=== PATIENT | male | born 1945 | race Caucasian/White ===

== ENCOUNTER 2018-12-12 08:16 | Outpatient (CLI) | payer MEDICARE ==
--- NOTE | 2018-12-12 10:23 | ULT ---
GALLBLADDER ULTRASOUND: History: Right upper quadrant pain. Comparison: None. Technique: Utilizing a multihertz transducer, sonographic imaging of the right upper quadrant was per formed in longitudinal and transverse plane. FINDINGS: Suboptimal evaluation of the pancreas. Heterogeneous echotexture of the liver may be due to hepatic steatosis or hepatocellular disease. Sub sequent evaluation for hepatic masses and intrahepatic biliary dilatation is limited. There is gallbladder wall thickening and pericholecystic fluid. Gallbladder is distended measuring 10 .2 cm. Within the gallbladder there are echogenic foci compatible with gallstones. Sludge is also not ed. There is a positive Hilton's sign. Gallbladder wall thickening is 0.8 cm. There is right renal cortical thinning. No hydronephrosis. Right kidney measures 11.1 cm in maximum d imension. Main portal vein is patent. Appropriate direction of flow. Common bile duct is 0.5 cm. IMPRESSION: Sonographic evidence of cholecystitis. POS: [facility]
== END 2018-12-12 08:17 | disposition home or self-care (01) ==
LOC: ULT 08:16
PROVIDERS: ATTEND Internal Medicine Gastroenterology
DX: R10.11 Right upper quadrant pain (principal); R07.9 Chest pain, unspecified; K81.9 Cholecystitis, unspecified
CPT/HCPCS: 76705

== ENCOUNTER 2018-12-12 09:48 | Inpatient (IN) | payer MEDICARE ==
[2018-12-12] MEDS ORDERED: Morphine 4 MG/ML VIAL ONE (10:14)
[2018-12-12] MEDS ORDERED: Ondansetron PF 4 MG/2 ML Vial ONE (10:14)
[2018-12-12 10:39] LABS: Mean Corpuscular HGB CONC 32.4 g/dL (32.0-36.0); Mean Corpuscular Hemoglobin 31.8 pg (27.0-31.0); Platelet Count 356 thou/uL (130-400); RBC Distribution Width 11.6 % (11.5-14.5); Red Blood Cell (RBC) Count 4.72 mill/uL (4.70-6.10); White Blood Cell (WBC) Count 19.3 thou/uL (4.8-10.8)
[2018-12-12 10:40] LABS: INR-International Normal Ratio 1.1; PTT 29.9 SEC (22.9-36.1); Prothrombin Time 14.5 SEC (12.0-14.7)
[2018-12-12 10:46] LABS: ALT (SGPT) 156 U/L (8-55); AST (SGOT) 115 U/L (5-34); Albumin 3.9 g/dL (3.4-4.8); Alkaline Phosphatase 557 U/L (40-150); Anion Gap 20 mmol/L (10-20); BUN (Urea Nitrogen) 53 mg/dL (8.4-25.7); Bilirubin, Total 1.5 mg/dL (0.2-1.2); CK (CPK) 29 U/L (30-200); Calc. Creatinine Clearance 0 mL/min (70-130); Calcium 9.9 mg/dL (7.8-10.44); Carbon Dioxide 21 mmol/L (23-31); Chloride 99 mmol/L (98-107); Estimated GFR-MDRD 20; Globulin 4.2 g/dL (2.4-3.5); Glucose 123 mg/dL (83-110); Lipase 37 U/L (8-78); Potassium 4.2 mmol/L (3.5-5.1); Protein, Total 8.1 g/dL (5.8-8.1); Sodium 136 mmol/L (136-145)
[2018-12-12 11:00] LABS: Band 6 % (5-11); Lymphocytes 5 % (21-51); MDiff Complete? YES; Monocytes 6 % (0-10); Neutrophil 83 % (42-75); RBC Morphology Normal
[2018-12-12] MEDS ORDERED: MEROPENEM 1 GM/50 ML 1 GM in Premix Bag 1 BAG IVPB SCH (11:15)
--- NOTE | 2018-12-12 11:33 | RAD ---
ONE VIEW CHEST: Comparison: 09-09-19 History: Preoperative exam. FINDINGS: Portable upright chest radiograph demonstrates a normal cardiac silhouette. Pulmonary vessels and hil um are normal. Costophrenic angles are clear. No consolidation or mass. No pneumothorax or osseous ab normality. IMPRESSION: No acute cardiopulmonary process. POS: [facility]
[2018-12-12 14:11] VITALS: BMI 23.9
[2018-12-12] MEDS ORDERED: Acetaminophen 650 MG Suppository PR PRN (14:21)
[2018-12-12] MEDS ORDERED: hydrALAZINE 20 MG/ML VIAL SLOW IVP PRN (14:21)
[2018-12-12] MEDS ORDERED: Acetaminophen 500 MG TAB PO PRN (14:21)
[2018-12-12] MEDS ORDERED: Ondansetron ODT 4 MG TAB PO PRN (14:21)
[2018-12-12] MEDS: Piperacillin/Tazobactam 2.25 GM in Sodium Chloride 0.9% 100 ML IVPB SCH ×2 (14:42→21:03)
[2018-12-12] MEDS: Sodium Chloride 0.9% 1,000 ML IV SCH (14:42)
[2018-12-12] MEDS: Famotidine/PF 20 mg/2ml Vial SLOW IVP SCH (20:17)
--- NOTE | 2018-12-12 21:21 | HP ---
PRIMARY CARE PROVIDER: [facility]. CHIEF COMPLAINT: Abdominal pain. HISTORY OF PRESENT ILLNESS: This is a 73-year-old male who presents to [facility] after being directed by his primary visual display manager, Dr. Bran, for increasing abdominal pain and a gallbladder ultrasound confirming the presence of cholecystitis. The patient states he was recently admitted to [facility] in [place], [place], undergoing extensive cardiac evaluation after presenting with chest pain to [facility]. The patient underwent cardiac workup with essentially negative findings and was released to home. The patient states he began developing increasing abdominal discomfort, worsening with deep inspiration with associated shaking chills, decreased appetite, and general malaise. The patient denied any recent trauma, injury, or recent surgical intervention, but does states he has extensive surgical history, previously undergoing partial colectomy due to severe diverticulitis. The patient localizes most of the pain to the right upper quadrant region, worse with deep inspiration as stated previously. The patient does state he continues to have regular bowel movements, usually very loose after his partial colectomy. The patient initially rated the pain 8/10, currently 3/10. In the emergency room, the patient underwent general evaluation including gallbladder ultrasound showing evidence of cholecystitis with gallbladder wall thickening and pericholecystic fluid. Common bile duct was not dilated and the patient received meropenem 1 g x1 dose in addition to intravenous normal saline, morphine sulfate, and Zofran. PAST MEDICAL HISTORY: 1. Diverticulitis/diverticulosis. 2. Myocardial infarction x3. 3. Hyperlipidemia. 4. Incisional abdominal hernia. 5. History of varicose veins. PAST SURGICAL HISTORY: 1. Status post skin cancer removal from the back. 2. Prostate resection. 3. Status post partial colectomy. 4. Status post repair of incisional hernia. CURRENT MEDICATIONS: 1. Aspirin enteric-coated 81 mg p.o. daily. 2. Flexeril 10 mg p.o. daily. 3. Dexilant 30 mg p.o. daily. 4. Cartia XT 120 mg p.o. daily. 5. Nitroglycerin 0.4 mg sublingually q.5 minutes p.r.n. chest pain. 6. Crestor 10 mg p.o. daily. 7. Valsartan 40 mg p.o. daily. 8. Ventolin HFA 2 puffs inhaled b.i.d. p.r.n. 9. Effient 10 mg p.o. daily. ALLERGIES: CODEINE AND HYDROCODONE. FAMILY HISTORY: Mother with coronary artery disease. SOCIAL HISTORY: The patient is , accompanied by his in the hospital. Former tobacco use, none currently. Alcohol use, 2 to 3 drinks daily. No illicit drug use. REVIEW OF SYSTEMS: CONSTITUTIONAL: Negative for weight loss or gain, ability to conduct usual activities. SKIN: Negative for rash, itching. EYES: Negative for double vision, pain. ENT/MOUTH: Negative for nose bleeding, neck stiffness, pain, tenderness. CARDIOVASCULAR: Negative for palpitations, dyspnea on exertion, orthopnea. RESPIRATORY: Negative for shortness of breath, wheezing, cough, hemoptysis, fever or night sweats. GASTROINTESTINAL: Negative for poor appetite, abdominal pain, heartburn, nausea, vomiting, constipation, or diarrhea. GENITOURINARY: Negative for urgency, frequency, dysuria, nocturia. MUSCULOSKELETAL: Negative for pain, swelling. NEUROLOGIC/PSYCHIATRIC: Negative for anxiety, depression. ALLERGY/IMMUNOLOGIC: Negative for skin rash, bleeding tendency. Otherwise, negative except as stated per HPI. PHYSICAL EXAMINATION: VITAL SIGNS: On admission, blood pressure 112/74, pulse 78, respiratory rate 18, temperature 98.3 degrees Fahrenheit, and O2 saturation 94% on room air. GENERAL APPEARANCE: This is a 73-year-old male, alert and oriented x3, pleasant, conversant, in no acute distress. HEENT: Pupils are equal, round, reactive to light and accommodation. Extraocular muscles are intact. No scleral icterus. No conjunctival injection. Nares patent. OP is clear. Teeth in fair repair. NECK: Supple. No cervical adenopathy. No thyromegaly. No carotid bruits. No JVD appreciated. Cervical spine with full active and passive range of motion. No meningeal signs noted. CHEST: Lungs are clear to auscultation bilaterally. CARDIOVASCULAR: S1 and S2 without noted murmur, rub, or gallop. Heart sounds distant. ABDOMEN: Rounded with tenderness to palpation in the right upper quadrant. No rebound or guarding noted. Bowel sounds are positive in all 4 quadrants. Surgical scars noted in the midline consistent with prior surgical history. EXTREMITIES: Warm and dry with fair turgor. No clubbing, cyanosis, or asymmetric edema appreciated. Pulses palpable distally at the dorsalis pedis, posterior tibial, and popliteal arteries bilaterally. Capillary refill less than 2 seconds. NEUROLOGIC: Cranial nerves 2 through 12 are grossly intact. No focal or lateralizing signs appreciated. PERTINENT LABORATORY DATA AND X-RAY FINDINGS: Sodium 136, potassium 4.2, chloride 99, CO2 of 21, BUN 53, creatinine 3.14, estimated GFR of 20, glucose 123, calcium 9.9, total bilirubin 1.5, AST 115, ALT 156, alkaline phosphatase 557, total CK of 29. BNP 12.3. Lipase 37. CBC showed a white blood cell count of 19.3, hemoglobin 15, hematocrit 46, and platelet count 356, with 83% neutrophils. PT 14.5, INR 1.1, and PTT 30. Abdominal ultrasound dated 12/12/2018 showed gallbladder wall thickening with pericholecystic fluid with gallbladder measuring 10.2 cm. Echogenic foci compatible with gallstones and sludge noted. Common bile duct 0.5 cm. Portable chest x-ray dated 12/12/2018 showed no acute cardiopulmonary process. EKG dated 12/12/2018 by my interpretation shows a sinus mechanism with heart rates in the 80s. Normal R-wave progression noted in the precordial leads. Normal axis. No acute ST-T wave changes appreciated. ASSESSMENT AND PLAN: 1. Acute cholecystitis. The patient will be admitted to the medical floor. Continue Zosyn 2.25 g IV q.8 hours. Intravenous normal saline at 100 mL/h. Pain control with morphine sulfate 4 mg IV q.4 hours p.r.n. Consult General Surgery Service for surgical intervention and cholecystectomy. 2. Acute kidney injury. Suspect multifactorial including hypovolemia in conjunction with iatrogenic influence with losartan. Continue intravenous normal saline at 100 mL/h. Avoid nephrotoxic agents and limit contrast exposure. Repeat creatinine in the a.m. 3. Transaminitis, secondary to acute cholecystitis. We will continue to monitor LFT trend. Limit hepatotoxic agents. Hold Crestor. 4. Coronary artery disease, chronic and stable. Enteric-coated aspirin 81 mg daily. Recent cardiac workup negative. 5. Prophylaxis. SCDs while in bed. Pepcid 20 mg IV q.24 hours. 6. Code status is full. Surrogate medical decision maker is the patient's spouse. Job ID: [id number]
--- NOTE | 2018-12-13 00:01 | CON ---
DATE OF CONSULTATION: 12/12/2018 CONSULTING PHYSICIAN: Dr. Venkat De Los Santos. REASON FOR CONSULTATION: Acute kidney injury. REASON FOR ADMISSION: Abdominal pain. HISTORY OF PRESENT ILLNESS: This is a 73-year-old male with a history of coronary artery disease, hyperlipidemia, came to the hospital with the above complaints and he was found to have elevated creatinine. The patient was found to have a good p.o. intake. No nausea, vomiting, or diarrhea reported. No fever or chills. PAST MEDICAL HISTORY: Positive for coronary artery disease, hyperlipidemia. PAST SURGICAL HISTORY: Cardiac stents, tonsillectomy. HOME MEDICATIONS: Reviewed. ALLERGIES: NO KNOWN DRUG ALLERGIES. SOCIAL HISTORY: No smoking, alcohol, or illicit drug abuse. FAMILY HISTORY: No history of any kidney disease. REVIEW OF SYSTEMS: CONSTITUTIONAL: Negative for weight loss or gain, ability to conduct usual activities. SKIN: Negative for rash, itching. EYES: Negative for double vision, pain. ENT/MOUTH: Negative for nose bleeding, neck stiffness, pain, tenderness. CARDIOVASCULAR: Negative for palpitations, dyspnea on exertion, orthopnea. RESPIRATORY: Negative for shortness of breath, wheezing, cough, hemoptysis, fever or night sweats. GASTROINTESTINAL: Negative for poor appetite, abdominal pain, heartburn, nausea, vomiting, constipation, or diarrhea. GENITOURINARY: Negative for urgency, frequency, dysuria, nocturia. MUSCULOSKELETAL: Negative for pain, swelling. NEUROLOGIC/PSYCHIATRIC: Negative for anxiety, depression. ALLERGY/IMMUNOLOGIC: Negative for skin rash, bleeding tendency. PHYSICAL EXAMINATION: GENERAL: This is a well-built male, in no apparent distress. VITAL SIGNS: Temperature 98.3, pulse 78, respiratory rate 18, blood pressure 112/74. HEENT: Atraumatic and normocephalic. Oral mucosa is moist. NECK: Supple. CARDIOVASCULAR: S1 and S2 heard. Rate and rhythm are regular. RESPIRATORY: Clear. DERMATOLOGIC: No skin rash. NEUROLOGIC: Alert and awake. PSYCHIATRIC: Normal mood and affect LABORATORY DATA: Hemoglobin is 15, potassium is 4.2, BUN is 53, creatinine is 3.1. ASSESSMENT AND PLAN: 1. Acute kidney injury, most likely from volume depletion and sepsis. 2. Edema, controlled. 3. Hypertension. 4. Leukocytosis. 5. Avoid nephrotoxins. We will continue IV fluids as tolerated. Continue antibiotics. Thank you for the consult. Job ID: [id number]
--- NOTE | 2018-12-13 01:10 | CON ---
DATE OF CONSULTATION: 12/12/2018 CHIEF COMPLAINT: Abdominal pain. HISTORY OF PRESENT ILLNESS: Mr. Herndon is a 73-year-old man who presented to GI Clinic last night with abdominal pain. He had just been admitted to [facility] in [place], [place] the week before with sudden onset chest pain. He was admitted and ruled out for MS. He started developing right upper quadrant pain along with that as well. However, further workup was not performed at that time. He was thought to have primarily reflux for his symptoms. He presented to GI Clinic yesterday afternoon for evaluation of reflux. However, at that time he had complained more of right upper quadrant pain that had gradually worsened a couple of days before. He had epigastric pain along with that as well. He states that the pain was unrelated to eating, but was a severe pressure type, constant pain. The pain was worsened by lying on his right side. He had a nuclear stress test that was negative. He had no improvement with nitroglycerin. He reports that this pain was different from the pain he had previously with acid reflux. He was set up for ultrasound this morning which showed changes of acute cholecystitis. Liver tests were ordered and found to be elevated as well. The patient was sent onto the emergency room for further care where he was given IV fluids and antibiotics and also found to have acute renal failure. PAST MEDICAL HISTORY: Meyer esophagus, colon polyp requiring colon resection, diverticulosis, gastric ulcer, irritable bowel syndrome, gastroesophageal reflux disease, COPD, coronary artery disease. PAST SURGICAL HISTORY: Colon resection, prostate surgery, cardiac catheterization with stent placement. MEDICATIONS: As an outpatient include; 1. Aspirin. 2. Cartia. 3. Cyclobenzaprine. 4. Dexilant 30 mg daily. 5. Prasugrel. 6. Rosuvastatin. 7. Valsartan. 8. Ventolin. 9. Psyllium husk. ALLERGIES: CODEINE. SOCIAL HISTORY: He drinks 6-8 drinks per week. He is a former smoker. No drugs. FAMILY HISTORY: Negative for GI malignancy. REVIEW OF SYSTEMS: Negative x10 systems reviewed except as stated in the history of present illness. PHYSICAL EXAMINATION: VITAL SIGNS: Temperature 98.3, pulse 78, blood pressure 112/74. GENERAL: He is in no acute distress. Alert and oriented x3. HEENT: Eyes have no scleral icterus. Oropharynx is clear without lesions. No cervical or supraclavicular lymphadenopathy. LUNGS: Clear to auscultation bilaterally. HEART: Regular rate and rhythm without murmur. ABDOMEN: Soft, tender in the right upper quadrant without guarding. Bowel sounds are present. EXTREMITIES: No lower extremity edema. Cranial nerves are grossly intact. LABORATORY DATA: White blood cell count 19.3, hemoglobin 15.0, platelets 356. INR 1.1. Creatinine 3.14 with a BUN of 53, bilirubin 1.5, AST 115, ALT 156, alkaline phosphatase 557, albumin 3.9, lipase 37. IMPRESSION: 1. Acute cholecystitis. Ultrasound of the gallbladder today shows gallbladder wall thickening and pericholecystic fluid with gallbladder distention and gallstones present. Common bile duct measured 0.5 cm. 2. Elevated liver tests. This could be reactive to the acute cholecystitis. However, the elevated alkaline phosphatase does raise the possibility of choledocholithiasis. Given the normal-caliber bile duct plan is to recheck the liver tests in the morning. If the liver tests are not significantly increasing, then we will follow through with cholecystectomy with intraoperative cholangiogram. If the liver tests are rising, then ERCP might be indicated 1st. 3. Chronic obstructive pulmonary disease. 4. Coronary artery disease. 5. Acute renal failure, likely prerenal azotemia. RECOMMENDATIONS: 1. Recheck liver tests tomorrow. We will determine whether cholecystectomy with intraoperative cholangiogram versus ERCP should be performed 1st. Given the current information, the tentative plan is to perform the cholecystectomy 1st. 2. IV fluids and antibiotics. Job ID: [id number]
[2018-12-13] MEDS: Sodium Chloride 0.9% 1,000 ML IV SCH ×3 (04:57→20:16)
[2018-12-13] MEDS: Piperacillin/Tazobactam 2.25 GM in Sodium Chloride 0.9% 100 ML IVPB SCH ×3 (05:07→20:18)
[2018-12-13 08:55] LABS: ALT (SGPT) 108 U/L (8-55); AST (SGOT) 76 U/L (5-34); Alkaline Phosphatase 469 U/L (40-150); Anion Gap 13 mmol/L (10-20); BUN (Urea Nitrogen) 52 mg/dL (8.4-25.7); Bilirubin, Total 0.8 mg/dL (0.2-1.2); Calc. Creatinine Clearance 31 mL/min (70-130); Calcium 8.4 mg/dL (7.8-10.44); Carbon Dioxide 22 mmol/L (23-31); Chloride 108 mmol/L (98-107); Estimated GFR-MDRD 27; Globulin 3.3 g/dL (2.4-3.5); Glucose 101 mg/dL (83-110); Potassium 4.2 mmol/L (3.5-5.1); Protein, Total 6.3 g/dL (5.8-8.1); Sodium 139 mmol/L (136-145)
[2018-12-13] MEDS ORDERED: Nitroglycerin 0.4 MG TAB (25 Tab Bottle) SL PRN (08:55)
[2018-12-13] MEDS ORDERED: Albuterol Sulfate 2.5 mg/3 ml Neb NEB PRN (08:56)
[2018-12-13] MEDS ORDERED: Valsartan 80 MG TAB PO SCH ×2 (09:00)
[2018-12-13] MEDS: Rosuvastatin 10 MG TAB PO SCH (09:48)
--- NOTE | 2018-12-13 10:05 | PRG ---
DATE OF SERVICE: 12/13/2018 SUBJECTIVE: The patient still has some mild right upper quadrant abdominal pain, but eager to get through a surgical procedure. He has been voiding well. Urine is clear. He has no other new complaints. PHYSICAL EXAMINATION: VITAL SIGNS: Temperature 97.6, pulse 74, respirations 20, O2 saturation 92% on room air, BP 129/78. GENERAL APPEARANCE: Age-appropriate male, in no distress. He is awake, alert, oriented, pleasant, and cooperative. HEART: Regular rate and rhythm without murmurs, gallops, or rubs. LUNGS: Clear bilaterally. ABDOMEN: Soft, nondistended. Positive bowel sounds. Tenderness to palpation with some mild voluntary guarding in the right upper quadrant. EXTREMITIES: No edema. LABORATORY DATA: Sodium 139, potassium 4.8, chloride 108, CO2 is 22, BUN 52, creatinine 2.41, total bilirubin 0.8, AST 76, ALT 108, alkaline phosphatase 469. IMPRESSION AND PLAN: 1. Acute cholecystitis. The patient has slightly improved liver enzymes this morning, Gastroenterology and Surgery following. Per Gastrointestinal recommendations, may simply need cholecystectomy with intraoperative cholangiogram, possibility of an endoscopic retrograde cholangiopancreatography prior to surgery. However, his liver enzymes can appear to be slightly better. 2. Transaminitis secondary to acute cholecystitis. 3. Chronic obstructive pulmonary disease, chronic, stable. The patient does not use inhaler and has not had one in a good while. We will provide him one p.r.n. 4. History of coronary artery disease, stable and well compensated. Holding his aspirin and Effient until he is postoperative today. 5. Acute kidney failure. The patient's creatinine is improved with hydration. I suspect this was previous prerenal azotemia secondary to dehydration illness. Nephrology following. Continue with fluids. Continue to monitor labs. Job ID: [id number]
[2018-12-13 11:24] LABS: Band 4 % (5-11); Eosinophils 3 % (0-10); Hemoglobin 12.5 g/dL (14.0-18.0); Hypochromia SLIGHT = 6-15 cells (100X) (0-5/hpf); Lymphocytes 7 % (21-51); MDiff Complete? YES; Macrocytosis SLIGHT = 6-15 cells (100X) (0-5/hpf); Mean Corpuscular HGB CONC 31.9 g/dL (32.0-36.0); Mean Corpuscular Hemoglobin 32.1 pg (27.0-31.0); Mean Platelet Volume 7.3 fL (7.4-10.4); Monocytes 6 % (0-10); Neutrophil 80 % (42-75); Platelet Count 237 thou/uL (130-400); Platelet Morphology Comment Appears Adequate; RBC Distribution Width 11.7 % (11.5-14.5); Red Blood Cell (RBC) Count 3.89 mill/uL (4.70-6.10); White Blood Cell (WBC) Count 9.1 thou/uL (4.8-10.8)
--- NOTE | 2018-12-13 12:58 | PRG ---
DATE OF SERVICE: 12/13/2018 SUBJECTIVE: Patient was seen and examined at bedside and overnight events noted. Patient denies any shortness of breath or chest pain or palpitation. No history of nausea or vomiting or diarrhea or fever or chills or cramps. OBJECTIVE: GENERAL: This is a well-built male, in no apparent distress. VITAL SIGNS: Temperature 97.0, pulse 74, respiratory rate 20, blood pressure 129/78. HEENT: Atraumatic, normocephalic. Oral mucosa is moist NECK: Supple. CARDIOVASCULAR: S1, S2 heard. Rate and rhythm regular. RESPIRATORY: Clear to auscultation. GASTROINTESTINAL: Abdomen is soft. MUSCULOSKELETAL: No tenderness. No edema. DERMATOLOGIC: No skin rash. NEUROLOGIC: Alert and awake and oriented X3. No focal neurologic deficits. Moving all the extremities. PSYCHIATRIC: Mood and affect normal. LABORATORY DATA: Potassium is 4.2, BUN is 52, creatinine is 2.4. ASSESSMENT AND PLAN: 1. Acute kidney injury, getting better. Avoid nephrotoxins. Plan discussed with Dr. Pelayo and plan to have surgery in next 24 to 48 hours. 2. Edema, controlled. 3. Hypertension. 4. Leukocytosis. Overall stable. Renal function getting better. Avoid nephrotoxins and renally dose all medications. Continue antibiotics and IV fluids as tolerated. We will hold Valsartan for now. Job ID: [id number]
--- NOTE | 2018-12-13 17:06 | CON ---
DATE OF CONSULTATION: 12/13/2018 CHIEF COMPLAINT: Cholecystitis. HISTORY OF PRESENT ILLNESS: This is a 73-year-old male, who presents with a history of previous right colectomy followed by incisional hernia repair by me. He had component separation hernia repair. He now presents with upper abdominal pain, bloating. Right upper quadrant ultrasound shows acute cholecystitis. Common bile duct is normal on the ultrasound. His liver tests were elevated on admission as was his creatinine, which was elevated to 3. He has been hemodynamically stable since admission. He is urinating regularly. His pain is slightly improved, and his creatinine dropped from 3 to 2.4 this morning, and I discussed with Dr. Anderson, who recommends further observation before a general anesthetic unless it needs to be an urgent procedure. PAST MEDICAL HISTORY: As above. PAST SURGICAL HISTORY: As above. MEDICATIONS: See list. ALLERGIES: CODEINE. SOCIAL HISTORY: No smoking, alcohol, or other drugs. REVIEW OF SYSTEMS: A 10-system review of systems is otherwise negative, unless described above. PHYSICAL EXAMINATION: VITAL SIGNS: Blood pressure is 158/78, pulse 73, respirations 20. He is afebrile. HEENT: Sclerae anicteric. Oropharynx clear. NECK: No lymphadenopathy. CHEST: Clear. HEART: Regular rate and rhythm. ABDOMEN: Soft, tender in the right upper quadrant with localized guarding without rebound. EXTREMITIES: No ischemia or edema to extremities. LABORATORY DATA: White blood cell count is 9, hemoglobin is 12, platelet count is 237. Sodium 139, potassium 4.2, creatinine down from 3.14 to 2.41, bilirubin is now normal. ASSESSMENT: 1. Acute cholecystitis. 2. Acute tubular necrosis, likely secondary to dehydration. PLAN: Plan further observation and perform laparoscopic cholecystectomy when it is deemed safe by Nephrology. We will continue to follow with you. I suspect surgery in the next 48 to 72 hours. Job ID: [id number]
[2018-12-13] MEDS: Famotidine/PF 20 mg/2ml Vial SLOW IVP SCH (20:15)
[2018-12-14] MEDS: Piperacillin/Tazobactam 2.25 GM in Sodium Chloride 0.9% 100 ML IVPB SCH ×3 (05:48→20:08)
[2018-12-14] MEDS: Sodium Chloride 0.9% 1,000 ML IV SCH ×3 (05:52→17:05)
[2018-12-14 06:55] LABS: #Eosinphils 0.2 thou/uL (0.0-0.7); #Lymphocytes 0.8 thou/uL (1.20-3.40); #Monocytes 0.8 thou/uL (0.11-0.59); #Neutrophils 6.6 thou/uL (1.40-6.50); %Basophils 0.5 % (0.0-1.0); %Eosinophils 2.3 % (0.0-10.0); %Lymphocytes 9.8 % (21.0-51.0); %Monocytes 9.7 % (0.0-10.0); %Neutrophils 77.7 % (42.0-75.0); Hemoglobin 12.3 g/dL (14.0-18.0); Mean Corpuscular HGB CONC 32.7 g/dL (32.0-36.0); Mean Corpuscular Hemoglobin 32.7 pg (27.0-31.0); Mean Corpuscular Volume 99.8 fL (78.0-98.0); Mean Platelet Volume 7.3 fL (7.4-10.4); Platelet Count 254 thou/uL (130-400); RBC Distribution Width 11.5 % (11.5-14.5); Red Blood Cell (RBC) Count 3.75 mill/uL (4.70-6.10); White Blood Cell (WBC) Count 8.4 thou/uL (4.8-10.8)
[2018-12-14 07:15] LABS: Anion Gap 12 mmol/L (10-20); BUN (Urea Nitrogen) 35 mg/dL (8.4-25.7); Calc. Creatinine Clearance 50 mL/min (70-130); Calcium 8.4 mg/dL (7.8-10.44); Carbon Dioxide 23 mmol/L (23-31); Chloride 108 mmol/L (98-107); Estimated GFR-MDRD 46; Glucose 93 mg/dL (83-110); Sodium 139 mmol/L (136-145)
[2018-12-14] MEDS: Rosuvastatin 10 MG TAB PO SCH (08:38)
--- NOTE | 2018-12-14 14:08 | PRG ---
DATE OF SERVICE: 12/14/2018 SUBJECTIVE: Mr. Herndon is feeling better today, has no real complaints. His kidney function is improved. OBJECTIVE: VITAL SIGNS: He is afebrile. Vital signs are stable. ASSESSMENT: Acute cholecystitis. PLAN: Laparoscopic cholecystectomy tomorrow morning. Risks, benefits, and alternatives were discussed and he gives consent. We will do this tomorrow. Job ID: [id number]
--- NOTE | 2018-12-14 16:07 | PDOC.PN ---
- Subjective Encounter Start Date: 12/14/18 (f/u htn) Encounter Start Time: 16:05 Subjective: Pt reports feeling better. 4 loose stools today. denies n/v -: some abd pain but improved compared to admission. -: denies any new stents - Objective Resuscitation Status - Order Detail: 12/12/18 12:17 Resuscitation Status Routine Resuscitation Status: FULL: Full Resuscitation Vital Signs & Weight: Vital Signs (12 hours) Temp Pulse Resp BP BP Pulse Ox 12/14/18 08:39 77 142/62 H 12/14/18 07:30 98.3 F 77 12 142/62 H 90 L Weight Admit Weight 176 lb 5.917 oz Weight 176 lb 5.917 oz I&O: 12/13/18 12/14/18 12/15/18 06:59 06:59 06:59 Intake Total 1919 780 Balance 1919 780 Result Diagrams: 12/14/18 06:33 12/14/18 06:33 Phys Exam - Physical Examination Constitutional: NAD Respiratory: no wheezing, no rales, no rhonchi, clear to auscultation bilateral Cardiovascular: RRR, no significant murmur Gastrointestinal: soft, non-tender, no distention, positive bowel sounds Musculoskeletal: no edema Neurological: non-focal, moves all 4 limbs Psychiatric: normal affect Dx/Plan (1) Acute cholecystitis Code(s): K81.0 - ACUTE CHOLECYSTITIS Status: Acute (2) DAYANARA (acute kidney injury) Code(s): N17.9 - ACUTE KIDNEY FAILURE, UNSPECIFIED Status: Acute (3) Transaminitis Code(s): R74.0 - NONSPEC ELEV OF LEVELS OF TRANSAMNS & LACTIC ACID DEHYDRGNSE Status: Acute (4) Diarrhea Code(s): R19.7 - DIARRHEA, UNSPECIFIED Status: Acute (5) Coronary artery disease Code(s): I25.10 - ATHSCL HEART DISEASE OF [place] CORONARY ARTERY W/O ANG PCTRS Status: Chronic (6) Dyslipidemia Code(s): E78.5 - HYPERLIPIDEMIA, UNSPECIFIED Status: Chronic (7) Anemia Code(s): D64.9 - ANEMIA, UNSPECIFIED Status: Acute Qualifiers: Anemia type: unspecified type Qualified Code(s): D64.9 - Anemia, unspecified - Plan * Appreciate Nephro and Gen Surgery consults * anticipated surgery tomorrow * Creatinine improved. Pt frequently voiding - will lower NS IVF slightly * * check C Diff given diarrhea. If negative imodium prn * on dual anti-platelet therapy, no recent stent. Resume when cleared by Gen Surgery * * anemia - mild, monitor * * dvt prophy - scd's * gi prophy -not indicated * code status full. * * reviewed plan of care wiht patient, no questions or further needs at end of eval * pt remains at high risk in current condition
--- NOTE | 2018-12-14 18:34 | PRG ---
DATE OF SERVICE: 12/14/2018 SUBJECTIVE: Patient was seen and examined at bedside and overnight events noted. Patient denies any shortness of breath or chest pain or palpitation. No history of nausea or vomiting or diarrhea or fever or chills or cramps. OBJECTIVE: GENERAL: This is a well-built male, in no apparent distress. VITAL SIGNS: Temperature 98.3, pulse 77, respiratory rate 18, blood pressure 142/62. HEENT: Atraumatic, normocephalic. Oral mucosa is moist NECK: Supple. CARDIOVASCULAR: S1, S2 heard. Rate and rhythm regular. RESPIRATORY: Clear to auscultation. GASTROINTESTINAL: Abdomen is soft. MUSCULOSKELETAL: No tenderness. No edema. DERMATOLOGIC: No skin rash. NEUROLOGIC: Alert and awake and oriented X3. No focal neurologic deficits. Moving all the extremities. PSYCHIATRIC: Mood and affect normal. LABORATORY DATA: Potassium is 4.0, BUN is 35, creatinine is 1.5. ASSESSMENT AND PLAN: 1. Acute kidney injury, getting better. 2. Edema, controlled. 3. Hypertension. 4. Leukocytosis. 5. Renal function is getting better nicely. Okay to have surgery tomorrow. Avoid nephrotoxins. We will monitor. Job ID: [id number]
[2018-12-14] MEDS: Famotidine/PF 20 mg/2ml Vial SLOW IVP SCH (20:06)
[2018-12-14] MEDS ORDERED: Loperamide HCl 2 MG CAP PO PRN (20:24)
[2018-12-15] MEDS: Piperacillin/Tazobactam 2.25 GM in Sodium Chloride 0.9% 100 ML IVPB SCH ×3 (05:59→20:17)
[2018-12-15] MEDS: Sodium Chloride 0.9% 1,000 ML IV SCH ×2 (06:00→18:29)
[2018-12-15 06:47] LABS: #Eosinphils 0.3 thou/uL (0.0-0.7); #Monocytes 0.8 thou/uL (0.11-0.59); %Basophils 0.1 % (0.0-1.0); %Eosinophils 4.1 % (0.0-10.0); %Lymphocytes 12.6 % (21.0-51.0); %Monocytes 9.8 % (0.0-10.0); %Neutrophils 73.4 % (42.0-75.0); Hemoglobin 12.4 g/dL (14.0-18.0); Mean Corpuscular HGB CONC 33.1 g/dL (32.0-36.0); Mean Corpuscular Hemoglobin 32.7 pg (27.0-31.0); Mean Corpuscular Volume 98.8 fL (78.0-98.0); Mean Platelet Volume 7.1 fL (7.4-10.4); Platelet Count 284 thou/uL (130-400); RBC Distribution Width 11.4 % (11.5-14.5); Red Blood Cell (RBC) Count 3.79 mill/uL (4.70-6.10); White Blood Cell (WBC) Count 8.2 thou/uL (4.8-10.8)
[2018-12-15 07:07] LABS: Anion Gap 12 mmol/L (10-20); BUN (Urea Nitrogen) 24 mg/dL (8.4-25.7); Calc. Creatinine Clearance 70 mL/min (70-130); Calcium 8.5 mg/dL (7.8-10.44); Carbon Dioxide 24 mmol/L (23-31); Chloride 109 mmol/L (98-107); Estimated GFR-MDRD 67; Glucose 103 mg/dL (83-110); Potassium 3.6 mmol/L (3.5-5.1); Sodium 141 mmol/L (136-145)
[2018-12-15] MEDS: Rosuvastatin 10 MG TAB PO SCH (10:00)
[2018-12-15] MEDS ORDERED: Lidocaine 1% PF 5 ML VIAL ONE (14:40)
[2018-12-15] MEDS ORDERED: Glycopyrrolate 0.2 MG/ML 5 ML SYRINGE ONE (14:40)
[2018-12-15] MEDS ORDERED: PROPOFOL 200 MG/20 ML VIAL ONE (14:40)
[2018-12-15] MEDS ORDERED: Rocuronium Bromide 10 MG/ML (10ML VIAL) ONE (14:40)
[2018-12-15] MEDS ORDERED: Ondansetron PF 4 MG/2 ML Vial ONE (14:40)
--- NOTE | 2018-12-15 14:45 | PRG ---
DATE OF SERVICE: 12/15/2018 SUBJECTIVE: Patient was seen and examined at bedside and overnight events noted. Patient denies any shortness of breath or chest pain or palpitation. No history of nausea or vomiting or diarrhea or fever or chills or cramps. OBJECTIVE: GENERAL: This is a well-built male, in no apparent distress. VITAL SIGNS: Temperature 98.2. Heart rate 73. Respiratory rate 18. Blood pressure 158/80. HEENT: Atraumatic, normocephalic. Oral mucosa is moist NECK: Supple. CARDIOVASCULAR: S1, S2 heard. Rate and rhythm regular. RESPIRATORY: Clear to auscultation. GASTROINTESTINAL: Abdomen is soft. MUSCULOSKELETAL: No tenderness. No edema. DERMATOLOGIC: No skin rash. NEUROLOGIC: Alert and awake and oriented X3. No focal neurologic deficits. Moving all the extremities. PSYCHIATRIC: Mood and affect normal. LABORATORY DATA: Potassium 3.6, creatinine is 1.08. ASSESSMENT AND PLAN: 1. Acute kidney injury, stable. 2. Edema, controlled. 3. Hypertension. 4. Leukocytosis. 5. Avoid nephrotoxins. Renal function is stable. We will follow. Job ID: [id number]
[2018-12-15] MEDS ORDERED: Fentanyl 100 MCG/2 ML VIAL ONE ×3 (14:53→17:37)
[2018-12-15] MEDS ORDERED: Bupivacaine HCl 0.5%/Epinephrine 1:200,000/PF 30 ml Vial ONE (14:59)
[2018-12-15] MEDS ORDERED: Bupivacaine/Epinephrine 0.25% 30 ML VIAL ONE (14:59)
[2018-12-15] MEDS ORDERED: Iothalamate Meglumine 60% 50 ML VIAL FS ONE (14:59)
--- NOTE | 2018-12-15 15:54 | EKG ---
Test Reason : Blood Pressure : / mmHG Vent. Rate : 083 BPM Atrial Rate : 083 BPM P-R Int : 142 ms QRS Dur : 090 ms QT Int : 360 ms P-R-T Axes : 034 050 039 degrees QTc Int : 423 ms Normal sinus rhythm Normal ECG Confirmed by SONIDO KU, GRACIELA (12), editor & co founder SIMON AGUILAR ([id number]) on 12/15/2018 3:53:54 PM Referred By: Confirmed By:GRACIELA HEAD MD
--- NOTE | 2018-12-15 18:09 | RAD ---
INTRAOPERATIVE CHOLANGIOGRAM 12/15/18 HISTORY: Cholecystectomy. FINDINGS: Three images from an intraoperative cholangiogram were provided. Contrast media is seen within the cy stic duct, incompletely imaged intrahepatic ducts and within the CBD. There is a questionable filling defect within the distal common bile duct on image 3-of-4. The distal CBD is never fully opacified. This could represent a stone within the distal aspect of the common bile duct, could be secondary to incomplete filling, or could represent an air bubble or blood clot. Correlation with real time imagin g is essential. IMPRESSION: Questionable tiny filling defect in distal CBD with incomplete opacification of CBD on provided imagi ng as above. POS: [facility]
--- NOTE | 2018-12-15 18:25 | PRG ---
DATE OF SERVICE: 12/15/2018 SUBJECTIVE: I saw Mr. Herndon prior to surgery. He was in no acute distress and he had tenderness in the right upper quadrant related to his cholecystitis. He underwent cholecystectomy today and intraoperative cholangiogram did show a filling defect in the bile duct. OBJECTIVE: ABDOMEN: Soft and tender in the right upper quadrant. LABORATORY DATA: White blood cell count was 8.2 today, hemoglobin 12.4, platelets 284. Creatinine has improved to 1.08. Bilirubin two days ago was down to 0.8, AST 76, ALT 108, alkaline phosphatase 469. IMPRESSION: 1. Acute cholecystitis, status post laparoscopic cholecystectomy today. 2. Choledocholithiasis. PLAN: We will perform endoscopic retrograde cholangiopancreatography in the morning. Job ID: [id number]
[2018-12-15] MEDS: Morphine 4 MG/ML VIAL SLOW IVP PRN ×2 (18:37→23:14)
--- NOTE | 2018-12-15 19:24 | PDOC.PN ---
- Subjective Encounter Start Date: 12/15/18 (f/u DAYANARA) Encounter Start Time: 18:20 Subjective: Pt s/p surgery = c/o pain. Denies any n/v -: No overnight events - Objective Resuscitation Status - Order Detail: 12/12/18 12:17 Resuscitation Status Routine Resuscitation Status: FULL: Full Resuscitation Vital Signs & Weight: Vital Signs (12 hours) Temp Pulse Resp BP Pulse Ox 12/15/18 18:25 97.4 F L 63 18 159/75 H 93 L 12/15/18 08:15 65 12/15/18 08:00 90 L 12/15/18 07:54 98.2 F 58 L 18 158/80 H 90 L Weight Admit Weight 176 lb 5.917 oz Weight 176 lb 5.917 oz I&O: 12/14/18 12/15/18 12/16/18 06:59 06:59 06:59 Intake Total 780 1511 Balance 780 1511 Result Diagrams: 12/15/18 06:28 12/15/18 06:28 Phys Exam - Physical Examination Constitutional: NAD Respiratory: no wheezing, no rales, no rhonchi Cardiovascular: RRR, no significant murmur Gastrointestinal: soft Musculoskeletal: no edema, pulses present Neurological: non-focal, moves all 4 limbs Psychiatric: normal affect Dx/Plan (1) Acute cholecystitis Code(s): K81.0 - ACUTE CHOLECYSTITIS Status: Acute (2) DAYANARA (acute kidney injury) Code(s): N17.9 - ACUTE KIDNEY FAILURE, UNSPECIFIED Status: Resolved (3) Transaminitis Code(s): R74.0 - NONSPEC ELEV OF LEVELS OF TRANSAMNS & LACTIC ACID DEHYDRGNSE Status: Acute (4) Diarrhea Code(s): R19.7 - DIARRHEA, UNSPECIFIED Status: Acute (5) Coronary artery disease Code(s): I25.10 - ATHSCL HEART DISEASE OF [place] CORONARY ARTERY W/O ANG PCTRS Status: Chronic (6) Dyslipidemia Code(s): E78.5 - HYPERLIPIDEMIA, UNSPECIFIED Status: Chronic (7) Anemia Code(s): D64.9 - ANEMIA, UNSPECIFIED Status: Acute Qualifiers: Anemia type: unspecified type Qualified Code(s): D64.9 - Anemia, unspecified - Plan * * Appreciate Nephro and Gen Surgery consults * s/p cholecystectomy today with plan for ERCP tomorrow * DAYANARA, continue IVF overnight * * diarrhea secondary to antibiotics, negative C Diff - imodium prn * on dual anti-platelet therapy, no recent stent. Resume when cleared by Gen Surgery * * anemia - mild, monitor * * dvt prophy - scd's * gi prophy -not indicated * code status full. * * reviewed plan of care with patient/family, no questions or further needs at end of eval * pt remains at high risk in current condition.
[2018-12-15] MEDS ORDERED: traMADol HCl 50 MG TAB PO PRN ×2 (19:45)
[2018-12-15] MEDS ORDERED: Fentanyl 100 MCG/2 ML VIAL SLOW IVP PRN ×2 (19:45)
[2018-12-15] MEDS: Famotidine/PF 20 mg/2ml Vial SLOW IVP SCH (20:17)
[2018-12-15] MEDS: Ondansetron PF 4 MG/2 ML Vial IVP PRN (23:24)
[2018-12-16 05:10] LABS: #Lymphocytes 0.4 thou/uL (1.20-3.40); #Monocytes 0.4 thou/uL (0.11-0.59); #Neutrophils 8.7 thou/uL (1.40-6.50); %Basophils 0.2 % (0.0-1.0); %Eosinophils 0.2 % (0.0-10.0); %Lymphocytes 4.4 % (21.0-51.0); %Monocytes 4.5 % (0.0-10.0); %Neutrophils 90.7 % (42.0-75.0); Hemoglobin 12.5 g/dL (14.0-18.0); Mean Corpuscular HGB CONC 32.9 g/dL (32.0-36.0); Mean Corpuscular Hemoglobin 32.6 pg (27.0-31.0); Mean Platelet Volume 7.3 fL (7.4-10.4); Platelet Count 329 thou/uL (130-400); RBC Distribution Width 11.5 % (11.5-14.5); Red Blood Cell (RBC) Count 3.84 mill/uL (4.70-6.10); White Blood Cell (WBC) Count 9.5 thou/uL (4.8-10.8)
[2018-12-16] MEDS: Piperacillin/Tazobactam 2.25 GM in Sodium Chloride 0.9% 100 ML IVPB SCH ×3 (05:10→20:24)
[2018-12-16] MEDS: Sodium Chloride 0.9% 1,000 ML IV SCH (05:11)
[2018-12-16 05:36] LABS: ALT (SGPT) 133 U/L (8-55); AST (SGOT) 111 U/L (5-34); Alkaline Phosphatase 690 U/L (40-150); Anion Gap 12 mmol/L (10-20); BUN (Urea Nitrogen) 23 mg/dL (8.4-25.7); Bilirubin, Total 0.7 mg/dL (0.2-1.2); Calc. Creatinine Clearance 73 mL/min (70-130); Calcium 8.2 mg/dL (7.8-10.44); Carbon Dioxide 24 mmol/L (23-31); Chloride 107 mmol/L (98-107); Estimated GFR-MDRD 71; Globulin 2.9 g/dL (2.4-3.5); Glucose 177 mg/dL (83-110); Potassium 4.6 mmol/L (3.5-5.1); Protein, Total 5.9 g/dL (5.8-8.1); Sodium 138 mmol/L (136-145)
[2018-12-16] MEDS: Rosuvastatin 10 MG TAB PO SCH (07:46)
[2018-12-16] MEDS ORDERED: Lidocaine 2% Jelly 5 ML TUBE ONE (08:55)
[2018-12-16] MEDS ORDERED: Fentanyl 100 MCG/2 ML VIAL ONE ×2 (08:55→11:38)
--- NOTE | 2018-12-16 09:37 | PDOC.GSPN ---
Surgery Progress Note: Subj - Subjective Narrative: complain of pain mostly in the left abdomen, getting ERCP today Surgery Progress Note: Obj - Vital signs Vital signs: Vital Signs - Most Recent Temp Pulse Resp BP Pulse Ox 97.6 F 76 18 155/82 H 91 L 12/16/18 07:49 12/16/18 07:49 12/16/18 07:49 12/16/18 07:49 12/16/18 08:00 - Physical Exam General: no distress Respiratory: clear to auscultation Abdomen: soft, appropriately tender Surgery Progress Note: Results - Labs Result Diagrams: 12/16/18 04:42 12/16/18 04:42 Lab results: Laboratory Results - last 24 hr 12/16/18 12/16/18 04:42 04:42 WBC 9.5 RBC 3.84 L Hgb 12.5 L Hct 38.0 L MCV 99.0 H MCH 32.6 H MCHC 32.9 RDW 11.5 Plt Count 329 MPV 7.3 L Neutrophils % 90.7 H Lymphocytes % 4.4 L Monocytes % 4.5 Eosinophils % 0.2 Basophils % 0.2 Neutrophils # 8.7 H Lymphocytes # 0.4 L Monocytes # 0.4 Eosinophils # 0.0 Basophils # 0.0 Sodium 138 Potassium 4.6 Chloride 107 Carbon Dioxide 24 Anion Gap 12 BUN 23 Creatinine 1.03 Estimated GFR (MDRD) 71 Glucose 177 H Calcium 8.2 Total Bilirubin 0.7 AST 111 H ALT 133 H Alkaline Phosphatase 690 H Serum Total Protein 5.9 Albumin 3.0 L Globulin 2.9 Albumin/Globulin Ratio 1.0 L Surgery Progress Note: A/P - Problem (1) Acute cholecystitis Current Visit: Yes Code(s): K81.0 - ACUTE CHOLECYSTITIS Status: Acute Assessment and Plan: Plan ERCP today for CBD stone. -ANDREAS drain in place , non-bilious, monitor for bile drainage. -pain control
[2018-12-16] MEDS ORDERED: Iothalamate Meglumine 60% 50 ML VIAL FS ONE (09:55)
[2018-12-16] MEDS ORDERED: Indomethacin 50 MG SUPP ONE (09:55)
[2018-12-16] MEDS ORDERED: Ondansetron HCl/PF 4 MG/2 ML Vial IVP PRN (11:19)
[2018-12-16] MEDS ORDERED: Promethazine HCl 25 MG/ML VIAL SLOW IVP PRN (11:19)
[2018-12-16] MEDS ORDERED: Promethazine HCl 25 MG/ML VIAL IM PRN (11:19)
--- NOTE | 2018-12-16 14:29 | RAD ---
ERCP: DATE: 12/16/2018. PROVIDED CLINICAL HISTORY: ERCP. FINDINGS/IMPRESSION: Opacification of the extrahepatic and intrahepatic biliary system demonstrate the previously describe d area of luminal narrowing treated with balloon distention. Subsequently, the biliary system appear s unremarkable. POS: [facility]
[2018-12-16] MEDS ORDERED: Dexamethasone 20 MG/5 ML VIAL ONE (14:51)
[2018-12-16] MEDS ORDERED: Lidocaine 1% PF 5 ML VIAL ONE (14:51)
[2018-12-16] MEDS ORDERED: Ondansetron PF 4 MG/2 ML Vial ONE (14:51)
[2018-12-16] MEDS ORDERED: PHENYLEPHRINE-NS 100 MCG/ML 10 ML SYRINGE ONE (14:51)
[2018-12-16] MEDS ORDERED: Glycopyrrolate 0.2 MG/ML 5 ML SYRINGE ONE (14:51)
[2018-12-16] MEDS ORDERED: Rocuronium Bromide 10 MG/ML (10ML VIAL) ONE (14:51)
[2018-12-16] MEDS ORDERED: PROPOFOL 200 MG/20 ML VIAL ONE (14:51)
--- NOTE | 2018-12-16 16:16 | PDOC.PN ---
- Subjective Encounter Start Date: 12/16/18 (f/u acute cholecystitis) Encounter Start Time: 16:13 Subjective: Pt today feels sore, is s/p ERCP. Denies any nausea or further diarrhea -: denies any cp/sob - Objective Resuscitation Status - Order Detail: 12/12/18 12:17 Resuscitation Status Routine Resuscitation Status: FULL: Full Resuscitation Vital Signs & Weight: Vital Signs (12 hours) Temp Pulse Resp BP BP Pulse Ox 12/16/18 16:10 97.4 F L 66 16 143/75 H 95 12/16/18 12:00 97.4 F L 63 18 152/76 H 91 L 12/16/18 08:00 91 L 12/16/18 07:49 97.6 F 76 18 155/82 H 91 L 12/16/18 07:46 74 12/16/18 05:00 97.9 F 74 18 148/79 H 92 L Weight Admit Weight 176 lb 5.917 oz Weight 176 lb 5.917 oz I&O: 12/15/18 12/16/18 12/17/18 06:59 06:59 06:59 Intake Total 1511 1450 Output Total 110 Balance 1511 1340 Result Diagrams: 12/16/18 04:42 12/16/18 04:42 Phys Exam - Physical Examination Constitutional: NAD Respiratory: no wheezing, no rales, no rhonchi, clear to auscultation bilateral Cardiovascular: RRR, no significant murmur Gastrointestinal: soft hypoactive bowel sounds Musculoskeletal: no edema Neurological: non-focal, moves all 4 limbs Psychiatric: normal affect Dx/Plan (1) Acute cholecystitis Code(s): K81.0 - ACUTE CHOLECYSTITIS Status: Acute (2) DAYANARA (acute kidney injury) Code(s): N17.9 - ACUTE KIDNEY FAILURE, UNSPECIFIED Status: Resolved (3) Transaminitis Code(s): R74.0 - NONSPEC ELEV OF LEVELS OF TRANSAMNS & LACTIC ACID DEHYDRGNSE Status: Acute (4) Diarrhea Code(s): R19.7 - DIARRHEA, UNSPECIFIED Status: Acute (5) Coronary artery disease Code(s): I25.10 - ATHSCL HEART DISEASE OF [place] CORONARY ARTERY W/O ANG PCTRS Status: Chronic (6) Dyslipidemia Code(s): E78.5 - HYPERLIPIDEMIA, UNSPECIFIED Status: Chronic (7) Anemia Code(s): D64.9 - ANEMIA, UNSPECIFIED Status: Acute Qualifiers: Anemia type: unspecified type Qualified Code(s): D64.9 - Anemia, unspecified - Plan * * Appreciate Nephro and Gen Surgery consults * s/p cholecystectomy 12/[address] Pelayo * s/p ERCP 12/[address] Bran * DAYANARA resolved and creatinine normal today. Will plan to d/c IVF when taking adequate PO * * diarrhea secondary to antibiotics, negative C Diff - imodium prn * on dual anti-platelet therapy, no recent stent. Resume when cleared by Gen Surgery * * anemia - mild, secondary to illness * * BP's mildly elevated - tx pain * * Oxygen requiring - start incentive spirometer while awake * * dvt prophy - scd's * gi prophy -not indicated * code status full. * * Discharge planning - based on when cleared by Gen Surgery - has a drain in place, on IV antibiotics currently, will need to determine when to restart aspirin/effient. * * Reviewed plan of care with patient/, no questions or further needs at end of eval.
[2018-12-16] MEDS: Ondansetron PF 4 MG/2 ML Vial IVP PRN (16:20)
--- NOTE | 2018-12-16 17:23 | OP ---
DATE OF PROCEDURE: 12/16/2018 PROCEDURES PERFORMED: Endoscopic retrograde cholangiopancreatography with sphincterotomy. PREOPERATIVE DIAGNOSIS: Choledocholithiasis by intraoperative cholangiogram. DESCRIPTION OF PROCEDURE: Informed consent was obtained from the patient. He was sedated with general anesthesia and placed in the prone position. The duodenoscope was advanced easily to the second portion of the duodenum where the ampulla was identified and was small and had good flow of bile. The common bile duct was selectively cannulated without difficulty. Cholangiogram was performed, which showed a 7 mm common bile duct with unremarkable intra and extrahepatic ducts. There was not an obvious filling defect. A complete sphincterotomy was performed. The 9 to 12 mm balloon was used to sweep the bile duct and passed easily through the sphincterotomy. Occlusion cholangiogram confirmed the duct to be clear and there was rapid drainage of contrast from the duct following sphincterotomy and balloon sweep of the duct. IMPRESSION: 1. Cholangiogram showing 7 mm common bile duct with unremarkable intra and extrahepatic ducts. No obvious filling defect was present. 2. Complete sphincterotomy performed. The ampulla was small. 3. Balloon sweep of the bile duct and occlusion cholangiogram confirms the duct to be clear. RECOMMENDATIONS: Check liver tests in the morning. Job ID: [id number]
[2018-12-16] MEDS: Morphine 4 MG/ML VIAL SLOW IVP PRN (20:24)
[2018-12-16] MEDS: Famotidine/PF 20 mg/2ml Vial SLOW IVP SCH (20:25)
--- NOTE | 2018-12-16 20:25 | PRG ---
DATE OF SERVICE: 12/16/2018 SUBJECTIVE: The patient was seen and examined at bedside and overnight events noted. The patient denies any shortness of breath or chest pain or palpitation. No history of nausea or vomiting or diarrhea or fever or chills or cramps. OBJECTIVE: GENERAL: This is a well-built male, in no apparent distress. VITAL SIGNS: Temperature 97.4, pulse 62, respiratory rate 16, blood pressure 143/75. HEENT: Atraumatic, normocephalic. Oral mucosa is moist NECK: Supple. CARDIOVASCULAR: S1, S2 heard. Rate and rhythm regular. RESPIRATORY: Clear to auscultation. GASTROINTESTINAL: Abdomen is soft. MUSCULOSKELETAL: No tenderness. No edema. DERMATOLOGIC: No skin rash. NEUROLOGIC: Alert and awake and oriented X3. No focal neurologic deficits. Moving all the extremities. PSYCHIATRIC: Mood and affect normal. LABORATORY DATA: Potassium is 4.6, BUN is 23, creatinine is 1.03. ASSESSMENT AND PLAN: 1. Acute kidney injury, stable, back to normal. 2. Edema, controlled. 3. Hypertension. 4. Leukocytosis. 5. Acute cholecystitis. Follow with surgery and GI, status post surgery. 6. Current renal function is stable. I will sign off. Please call back with any questions. Job ID: [id number]
[2018-12-17] MEDS: Sodium Chloride 0.9% 1,000 ML IV SCH ×2 (03:54→10:20)
[2018-12-17] MEDS: Piperacillin/Tazobactam 2.25 GM in Sodium Chloride 0.9% 100 ML IVPB SCH (05:47)
[2018-12-17] MEDS: Morphine 4 MG/ML VIAL SLOW IVP PRN ×2 (05:51→10:28)
[2018-12-17 06:34] LABS: #Lymphocytes 0.7 thou/uL (1.20-3.40); #Monocytes 0.9 thou/uL (0.11-0.59); #Neutrophils 11.8 thou/uL (1.40-6.50); %Eosinophils 0.1 % (0.0-10.0); %Lymphocytes 5.2 % (21.0-51.0); %Monocytes 6.9 % (0.0-10.0); %Neutrophils 87.7 % (42.0-75.0); Hemoglobin 12.4 g/dL (14.0-18.0); Mean Corpuscular HGB CONC 32.3 g/dL (32.0-36.0); Mean Corpuscular Hemoglobin 32.5 pg (27.0-31.0); Mean Platelet Volume 7.5 fL (7.4-10.4); Platelet Count 361 thou/uL (130-400); RBC Distribution Width 11.4 % (11.5-14.5); Red Blood Cell (RBC) Count 3.82 mill/uL (4.70-6.10); White Blood Cell (WBC) Count 13.5 thou/uL (4.8-10.8)
[2018-12-17 06:53] LABS: Anion Gap 11 mmol/L (10-20); BUN (Urea Nitrogen) 25 mg/dL (8.4-25.7); Calc. Creatinine Clearance 92 mL/min (70-130); Calcium 8.1 mg/dL (7.8-10.44); Carbon Dioxide 27 mmol/L (23-31); Chloride 109 mmol/L (98-107); Estimated GFR-MDRD Greater than 90; Glucose 130 mg/dL (83-110); Potassium 4.5 mmol/L (3.5-5.1); Sodium 142 mmol/L (136-145)
[2018-12-17 06:55] LABS: ALT (SGPT) 87 U/L (8-55); AST (SGOT) 31 U/L (5-34); Albumin 2.9 g/dL (3.4-4.8); Alkaline Phosphatase 500 U/L (40-150); Bilirubin, Direct 0.3 mg/dL (0.1-0.3); Bilirubin, Total 0.6 mg/dL (0.2-1.2); Protein, Total 5.7 g/dL (5.8-8.1)
[2018-12-17] MEDS: Rosuvastatin 10 MG TAB PO SCH (07:41)
[2018-12-17 07:53] VITALS: BP 148/82; TEMP 97.6
--- NOTE | 2018-12-17 09:01 | PDOC.GSPN ---
Surgery Progress Note: Subj - Subjective Patient reports: no new complaints Surgery Progress Note: Obj - Vital signs Vital signs: Vital Signs - Most Recent Temp Pulse Resp BP Pulse Ox 97.6 F 64 16 148/82 H 92 L 12/17/18 07:52 12/17/18 07:52 12/17/18 07:52 12/17/18 07:52 12/17/18 08:00 - Physical Exam General: no distress Abdomen: soft, appropriately tender Wound: healing well Surgery Progress Note: Results - Labs Result Diagrams: 12/17/18 06:00 12/17/18 06:00 Lab results: Laboratory Results - last 24 hr 12/17/18 12/17/18 12/17/18 06:00 06:00 06:00 WBC 13.5 H RBC 3.82 L Hgb 12.4 L Hct 38.5 L MCV 101.0 H MCH 32.5 H MCHC 32.3 RDW 11.4 L Plt Count 361 MPV 7.5 Neutrophils % 87.7 H Lymphocytes % 5.2 L Monocytes % 6.9 Eosinophils % 0.1 Basophils % 0.0 Neutrophils # 11.8 H Lymphocytes # 0.7 L Monocytes # 0.9 H Eosinophils # 0.0 Basophils # 0.0 Sodium 142 Potassium 4.5 Chloride 109 H Carbon Dioxide 27 Anion Gap 11 BUN 25 Creatinine 0.82 Estimated GFR (MDRD) Greater than 90 Glucose 130 H Calcium 8.1 Total Bilirubin 0.6 Direct Bilirubin 0.3 AST 31 ALT 87 H Alkaline Phosphatase 500 H Serum Total Protein 5.7 L Albumin 2.9 L Surgery Progress Note: A/P - Problem (1) Acute cholecystitis Current Visit: Yes Code(s): K81.0 - ACUTE CHOLECYSTITIS Status: Acute - Plan Plan: DC today -I wrote for norco and zoan and sent to [facility] -f/u ak monday for drain removal
--- NOTE | 2018-12-17 12:17 | PDOC.PN ---
- Subjective Encounter Start Date: 12/17/18 Encounter Start Time: 11:30 Subjective: Patient doing well post op. Dressed and ready to go home. Cleared by -: Dr. Pelayo to go home and Rx already given for pain meds by Dr. Pelayo. - Objective Resuscitation Status - Order Detail: 12/12/18 12:17 Resuscitation Status Routine Resuscitation Status: FULL: Full Resuscitation MAR Reviewed: Yes Vital Signs & Weight: Vital Signs (12 hours) Temp Pulse Resp BP Pulse Ox 12/17/18 08:00 92 L 12/17/18 07:52 97.6 F 64 16 148/82 H 92 L 12/17/18 07:41 64 12/17/18 00:19 97.5 F L 64 18 132/75 92 L Weight Admit Weight 176 lb 5.917 oz Weight 176 lb 5.917 oz I&O: 12/16/18 12/17/18 12/18/18 06:59 06:59 06:59 Intake Total 1450 420 Output Total 110 55 15 Balance 1340 -55 405 Result Diagrams: 12/17/18 06:00 12/17/18 06:00 Phys Exam - Physical Examination Constitutional: NAD HEENT: moist MMs Respiratory: no wheezing, no rales, no rhonchi Cardiovascular: RRR, no significant murmur Gastrointestinal: soft, positive bowel sounds Neurological: non-focal, moves all 4 limbs Psychiatric: normal affect, A&O x 3 Dx/Plan (1) Acute cholecystitis Code(s): K81.0 - ACUTE CHOLECYSTITIS Status: Acute Comment: s/p cholecystectomy and ERCP (2) DAYANARA (acute kidney injury) Code(s): N17.9 - ACUTE KIDNEY FAILURE, UNSPECIFIED Status: Resolved (3) Transaminitis Code(s): R74.0 - NONSPEC ELEV OF LEVELS OF TRANSAMNS & LACTIC ACID DEHYDRGNSE Status: Acute (4) Coronary artery disease Code(s): I25.10 - ATHSCL HEART DISEASE OF [place] CORONARY ARTERY W/O ANG PCTRS Status: Chronic (5) Diarrhea Code(s): R19.7 - DIARRHEA, UNSPECIFIED Status: Acute Comment: neg c.diff, getting antidiarrheals (6) Dyslipidemia Code(s): E78.5 - HYPERLIPIDEMIA, UNSPECIFIED Status: Chronic (7) Anemia Code(s): D64.9 - ANEMIA, UNSPECIFIED Status: Acute Qualifiers: Anemia type: unspecified type Qualified Code(s): D64.9 - Anemia, unspecified - Plan cont current plan of care d/c home, f/u with Dr. Pelayo for drain removal * . - Discharge Day Encounter end time: 11:50
--- NOTE | 2018-12-18 03:39 | DIS ---
DATE OF ADMISSION: 12/12/2018 DATE OF DISCHARGE: 12/17/2018 PRIMARY CARE PHYSICIAN: [facility]. REASON FOR ADMISSION: Acute cholecystitis. DIAGNOSES AT DISCHARGE: 1. Acute cholecystitis status post cholecystectomy and ERCP with sphincterotomy. 2. Acute kidney injury, resolved. 3. Transaminitis secondary to #1. 4. Diarrhea secondary to antibiotics, noninfectious. 5. Coronary artery disease, chronic. 6. Dyslipidemia. 7. Anemia. PROCEDURES: 1. Laparoscopic cholecystectomy with intraoperative cholangiogram showing a questionable tiny filling defect in the distal common bile duct with incomplete opacification of the common bile duct. 2. ERCP x-ray showing opacification of the extrahepatic and intrahepatic biliary system, status post treatment of the luminal narrowing with balloon distension. 3. Endoscopic retrograde cholangiopancreatography with sphincterotomy. CONSULTATIONS: 1. General Surgery, Dr. Pelayo. 2. Gastroenterology, Dr. Bran. 3. Nephrology, Dr. Anderson. SUMMARY OF HOSPITAL COURSE: This is a 73-year-old white male who was sent to the ER from Dr. Bran's office for increasing abdominal pain and gallbladder ultrasound confirming cholecystitis. The patient did have a recent negative extensive cardiac workup at [facility] for chest pain. The patient was admitted to the hospital, General Surgery was consulted. He eventually had a cholecystectomy done. The intraoperative cholangiogram did show some filling defects as above, so he had an ERCP done by Dr. Bran with balloon sweep and sphincterotomy with repeat cholangiogram that was normal. The patient did well postoperatively. He did have some diarrhea with his antibiotics given for his acute cholecystitis. However, his C diff was negative and so he was treated with antidiarrheals with good result. He was doing well on the day of discharge and was discharged by Dr. Pelayo to follow up in his clinic to have his drain removed in the clinic. The patient did have an elevated creatinine initially on his arrival. With fluid resuscitation and treatment of his infection, the patient's kidney function returned to normal. DISCHARGE MANAGEMENT: Location: Discharged home. Followup: Follow up with Dr. Pelayo on December 21 for drain removal and with his primary care doctor in 7-10 days. Activity: As tolerated. Diet: Healthy heart diet. DISCHARGE MEDICATIONS: 1. [place] as per Dr. Pelayo's written prescription. 2. Continue aspirin 81 mg daily. 3. Flexeril 10 mg daily. 4. Dexilant 30 mg daily. 5. Diltiazem extended release 120 mg daily. 6. Nitroglycerin as needed. 7. Effient 10 mg daily. 8. Crestor 10 mg daily. 9. Valsartan 40 mg daily. 10. Ventolin inhaler as needed. Job ID: [id number]
--- NOTE | 2018-12-18 13:51 | OP ---
DATE OF PROCEDURE: 12/15/2018 PREOPERATIVE DIAGNOSES: Acute cholecystitis, elevated liver tests. POSTOPERATIVE DIAGNOSES: Acute cholecystitis, elevated liver tests, choledocholithiasis. PROCEDURE PERFORMED: Laparoscopic cholecystectomy with intraoperative cholangiogram. ANESTHESIA: General. ESTIMATED BLOOD LOSS: Minimal. COMPLICATIONS: None. SPECIMENS: Gallbladder. DESCRIPTION OF PROCEDURE: The patient was taken to the operating room and laid supine on the operating room table. After general anesthetic was obtained, the abdomen was prepped and draped in a sterile fashion. Left subcostal 5-mm Optiview trocar was placed and high-flow pneumoperitoneum was obtained. The patient had significant intraabdominal adhesions. Additional 5 mm port had to be placed in left lower quadrant for adhesiolysis that was done sharply without injury. Finally, a 12-mm port was able to be placed near the umbilicus and two right upper quadrant 5 mm ports. The gallbladder was retracted from the gallbladder fossa. The peritoneum was opened anteriorly and posteriorly. The critical view triangle was seen showing only the cystic duct and cystic artery branching medial to lateral. There were no other branching structures. There was significant gangrenous cholecystitis present. A clip was placed high on the cystic duct. A small ductotomy was made just proximal to that. A cholangiocatheter was brought in through a separate stab incision, placed in the cystic duct and a cholangiogram was performed, which shows the common bile duct obstruction. It was partial. There was some contrast flow into the duodenum, but an obvious filling defect. Cholangiocatheter was removed. Two clips were placed proximally on the cystic duct and one laterally was cut using laparoscopic scissors. The cystic artery was taken using two clips proximally, one clip distally and cut using laparoscopic scissors. Cautery was used to dissect the gallbladder out of gallbladder fossa. Gallbladder was placed in and Endo Catch bag and brought out through the umbilical port site. All port sites were infiltrated using local anesthetic. All ports were removed under camera visualization. Pneumoperitoneum was let down. PDS was used to close the fascial defect at the larger port site. All incisions were irrigated and closed using 4-0 Monocryl and Dermabond. The patient was sent to Recovery in stable condition. All instrument counts, needle counts, and lap counts were correct. Job ID: [id number]
--- NOTE | 2018-12-19 07:30 | PQF ---
SAP Dishwasher Preparer Crystal Reports Winform Viewer URIAH DURBIN CHARLES DO [id number] [id number] CLINICAL DOCUMENTATION CLARIFICATION FORM: POST DISCHARGE Addendum to original discharge summary date: ____ Late entry note date: __ DATE:12-19-18 ATTN: Dr. Venkat De Los Santos Please exercise your independent, professional judgment in responding to the clarification form. Clinical indicators are provided on the bottom of this form for your review Can you please specify whether ATN is ruled in or ruled out during this encounter? [ ] Ruled in diagnosis [ ] Continue to treat [ ] Resolved [ ] Ruled out diagnosis [ ] Cannot rule out diagnosis [x ] Acute Kidney Injury (DAYANARA) [ ] Other diagnosis please specify: [ ] Unable to determine For continuity of documentation, please document condition throughout progress notes and discharge summary. Thank You. CLINICAL INDICATORS: -H&P 12/[address] De Los Santos- Acute kidney injury suspect multifactorial including hypovolemia -H&P 12/[address] De Los Santos- Avoid nephrotoxic agents and limit contrast exposure -PN 12/[address] Santana- DAYANARA-The patient creatinine is improved with hydration -Consult 12/[address] Pelayo- Acute tubular necrosis, likely secondary to dehydration -Consult 12/[address] Anderson Acute Kidney Injury, most likely from volume depletion and sepsis. -DS pg1 12/[address] Sebastian- Acute kidney, resolved -Laboratory-BUN =53(12/12), 52 (12/13), 35(12/14) -Laboratory-Creatine =3.14 (12/12), 2.41 (12/12), 1.50 (12/12) RISK FACTORS: -Anemia- DS 12/17 pg1 -Diarrhea secondary to antibiotics- DS 12/17 pg1 -Dehydration-Consult 12/13 pg2 -Hypertension- PN 12/15 pg1 -intermediate of Aspirin 81 mg daily H&P TREATMENTS: -IV fluids- MAR -Nephrology consult- Dr. Anderson 12/12 (This form is maintained as a part of the permanent medical record) 2014 [employer]. All Rights Reserved Fany [email or web address] [not [email or web address]] [email or web address]
== END 2018-12-17 12:10 | disposition home or self-care (01) | DRG 418 ==
LOC: ERS 09:48 → T4-A 10:29
PROVIDERS: ADMIT Family Medicine; ATTEND Family Medicine
PROC: 0FT44ZZ Resection of Gallbladder, Percutaneous Endoscopic Approach (ICD-10-PCS; 2018-12-15)
PROC: 0F798ZZ Dilation of Common Bile Duct, Via Natural or Artificial Opening Endoscopic (ICD-10-PCS; principal; 2018-12-16)
PROC: BF10YZZ Fluoroscopy of Bile Ducts using Other Contrast (ICD-10-PCS; 2018-12-16)
DX: K80.42 Calculus of bile duct with acute cholecystitis without obstruction (principal); N17.9 Acute kidney failure, unspecified; K52.1 Toxic gastroenteritis and colitis; I25.2 Old myocardial infarction; E78.5 Hyperlipidemia, unspecified; I25.10 Atherosclerotic heart disease of native coronary artery without angina pectoris; J44.9 Chronic obstructive pulmonary disease, unspecified; D64.9 Anemia, unspecified; T36.8X5A Adverse effect of other systemic antibiotics, initial encounter; Z88.5 Allergy status to narcotic agent; Z85.828 Personal history of other malignant neoplasm of skin; Z79.82 Long term (current) use of aspirin; Z90.49 Acquired absence of other specified parts of digestive tract; Z87.891 Personal history of nicotine dependence; Z95.5 Presence of coronary angioplasty implant and graft
CPT/HCPCS: 36415; 47532; 71045; 74330; 76705; 80048; 80053; 80076; 82550; 83690; 83880; 85007; 85025; 85027; 85610; 85730; 87324; 87449; 88304; 93005; 96361; 96365; 96375; 99211; G0463; J0670; J1100; J1610; J2001; J2185; J2270; J2405; J2543; J2704; J3010; J7050; Q9961; S0028

== ENCOUNTER 2023-11-22 14:43 | Outpatient (CLI) | payer MEDICARE ==
[2023-11-22 16:13] LABS: #Basophils 0.1 10x3/uL (0.0-0.2); #Eosinphils 0.2 10x3/uL (0.0-0.5); #Monocytes 0.9 10x3/uL (0.0-1.1); #Neutrophils 4.3 10x3/uL (1.5-8.4); %Basophils 0.7 % (0.0-2.0); %Eosinophils 3.5 % (0.0-6.0); %Lymphocytes 20.8 % (18.0-47.0); %Monocytes 12.9 % (0.0-10.0); %Neutrophils 61.7 % (40.0-75.0); Hemoglobin 16.1 g/dL (13.5-17.5); Mean Corpuscular HGB CONC 34.3 g/dL (32.0-36.0); Mean Corpuscular Hemoglobin 32.9 pg (27.0-33.0); Mean Corpuscular Volume 96.1 fl (81.2-95.1); Mean Platelet Volume 10.2 fl (7.4-10.4); Platelet Count 224 10x3/uL (150-450); RBC Distribution Width 12.2 % (11.5-14.5); Red Blood Cell (RBC) Count 4.89 10x6/uL (4.32-5.72); White Blood Cell (WBC) Count 6.9 10x3/uL (3.5-10.5)
[2023-11-22 16:44] LABS: Anion Gap 10 mmol/L (10-20); BUN (Urea Nitrogen) 16 mg/dL (8.4-25.7); Calc. Creatinine Clearance 0 mL/min (70-130); Calcium 8.9 mg/dL (7.8-10.44); Carbon Dioxide 28 mmol/L (23-31); Chloride 104 mmol/L (98-107); Estimated GFR 60; Glucose 87 mg/dL (83-110); Potassium 4.6 mmol/L (3.5-5.1); Sodium 137 mmol/L (136-145)
== END 2023-11-22 14:44 | disposition home or self-care (01) ==
LOC: LABBT 14:43
PROVIDERS: ATTEND Surgery
DX: Z01.818 Encounter for other preprocedural examination (principal); K40.90 Unilateral inguinal hernia, without obstruction or gangrene, not specified as recurrent; M79.89 Other specified soft tissue disorders
CPT/HCPCS: 80048; 85025; 93005; 93010